=== PATIENT | female | born 1990 | race Caucasian/White ===

== ENCOUNTER 2019-08-29 14:30 | Emergency (ER) | payer OTHER, SELFPAY ==
[2019-08-29 14:31] VITALS: BMI 21.7
[2019-08-29 14:35] VITALS: BP 132/81; PULSE 70; RESP 28; TEMP 36.6; O2SAT 99
[2019-08-29 15:00] VITALS: BP 138/82; PULSE 61; RESP 18; O2SAT 99
[2019-08-29 15:08] LABS: Add Manual Diff / Slide Review NO; Basophils Absolute Auto 0 /uL (0-100); Basophils Percent Auto 0.9 % (0-2); Eosinophils Absolute Auto 100 /uL (0-450); Eosinophils Percent Auto 1.3 % (2-4); Hematocrit 41.9 % (36-46); Hemoglobin 14.5 g/dL (12.0-16.0); Lymphocytes Absolute Auto 1900 /uL (1100-4500); Lymphocytes Percent Auto 36.4 % (25-40); Mean Corpuscular HGB Conc 34.6 % (30-36); Mean Corpuscular Hemoglobin 30.2 PG (26-34); Mean Corpuscular Volume 87.2 fL (80-100); Monocytes Absolute Auto 300 /uL (0-900); Monocytes Percent Auto 4.8 % (3-14); Neutrophils Absolute Auto 3000 /uL (1500-7000); Neutrophils Percent Auto 56.6 % (50-75); Platelet Count 296 X10^3/uL (150-400); Red Cell Distribution Width 12.9 % (11.6-14.8); White Blood Cell Count 5.3 X10^3/uL (4.5-11.0)
--- NOTE | 2019-08-29 15:17 | DI.US.S_ITS ---
PROCEDURE: US ABDOMEN LIMITED INDICATIONS: RIGHT UPPER QUADRANT, EPIGASTRIC PAIN TECHNIQUE: Real-time focused scanning was performed of the abdomen, with image documentation. COMPARISON: None. FINDINGS: Gallbladder is unremarkable. No gallstones. No gallbladder wall thickening. No fluid around the gallbladder. No sonographic Banegas's sign. Liver is unremarkable with a normal echo pattern. No dilated ducts. Visualized portions of the pancreas are unremarkable. Right kidney not evaluated. IMPRESSION: Unremarkable limited right upper quadrant ultrasound with no evidence of gallstone disease. Dictated by: César Garland M.D. on 08/29/2019 at 16:18 Approved by: César Garland M.D. on 08/29/2019 at 16:19
[2019-08-29 15:19] LABS: Prothrombin Time 11.7 SECONDS (10.1-12.7)
[2019-08-29 15:21] LABS: Alanine Aminotransferase 14 IU/L (<35); Albumin 4.5 g/dL (3.5-5.0); Albumin Globulin Ratio 1.5 (1.0-2.8); Alkaline Phosphatase 60 U/L (38-126); Amylase 86 U/L (30-110); Aspartate Aminotransferase 28 IU/L (14-36); BUN Creatinine Ratio 16.7 (6-22); Bilirubin Total 0.9 mg/dL (0.2-1.3); Blood Urea Nitrogen 15 mg/dL (7-17); Carbon Dioxide 26 mmol/L (22-32); Chloride 101 mmol/L (98-107); Estimated Glomerular Filt Rate > 60.0 mL/min (>60); Globulin 3.1 g/dL (1.7-4.1); Glucose 97 mg/dL (70-100); HEMOLYSIS < 15 (0-50); Lipase 72 U/L (23-300); PTT Partial Thromboplastin Tim 27 SECONDS (26.4-36.2); Potassium 3.6 mmol/L (3.4-5.1); Sodium 136 mmol/L (137-145); Total Protein 7.6 g/dL (6.3-8.2)
[2019-08-29] MEDS: ONDANSETRON 4 MG/2 ML INJ IV (15:45)
[2019-08-29] MEDS: PANTOPRAZOLE 40 MG VIAL IV (15:45)
[2019-08-29] MEDS: SODIUM CHLORIDE 0.9% 1,000 ML 1000 ML IV (15:45)
[2019-08-29] MEDS: MORPHINE 4 MG/ML INJ IV ×2 (15:45→16:18)
[2019-08-29 16:04] VITALS: BP 124/75; PULSE 56; RESP 16; O2SAT 100
[2019-08-29] MEDS: MAG HYDROX/ALUMINUM/SIMETH SUS 20 ML, LIDOCAINE VISCOUS 2% 15 ML PO (16:18)
[2019-08-29 16:57] LABS: RBC Urine None Seen (0-5/HPF)
[2019-08-29 17:09] LABS: Bacteria Urine Few (2-10); Culture Indicated Urine Cult Not Indicated; Squamous Epithelial Cell Urine 1-5 /HPF (0-5/HPF); WBC Urine 0-1/HPF (0-5/HPF)
[2019-08-29 17:45] VITALS: BP 114/72; PULSE 58; RESP 18; O2SAT 98
--- NOTE | 2019-08-29 20:46 | ED_ITS ---
HPI - Abdominal Pain <TROY Grayson - Last Filed: 08/29/19 20:50> General Chief Complaint: Abdominal Pain Stated Complaint: Abd pain Time Seen by Provider: 08/29/19 14:41 Source: patient and EMS Mode of arrival: EMS Limitations: no limitations History of Present Illness HPI narrative: The patient is a 29 year female nonsmoker with history of abdominal pain who presents with a chief complaint of epigastric abdominal pain. She states she has episodes where she has and controllable epigastric pain and they do not know why. She states that she was being worked up for IBS, then ce liac, now air PCP is recommending a scope. She states it started all of a sudden today, denies any fevers complains of associated nausea no vomiting no diarrhea. Last bowel movement yesterday. She denies any dysuria urgency or frequency. She denies any precipitating factors for her pain. Related Data Home Medications Medication Instructions Recorded Confirmed drospirenone-ethinyl estradiol 1 tab PO DAILY 08/29/19 Previous Rx's Medication Instructions Recorded ondansetron 4 mg PO Q6H PRN #30 tab 08/29/19 pantoprazole [Protonix] 20 mg PO DAILY #14 tab 08/29/19 Allergies Allergy/AdvReac Type Severity Reaction Status Date / Time No Known Drug Allergies Allergy Verified 08/29/19 14:56 Review of Systems <TROY Grayson - Last Filed: 08/29/19 20:50> Review of Systems Narrative: GENERAL: Denies chills, fatigue, malaise, fever, sweats. HEENT: Denies sinus pain, ear pain, sore throat, difficulty swallowing, dizziness. RESPIRATORY: Denies dyspnea, cough, wheezing, hemoptysis, sputum. CARDIOVASCULAR: Denies chest pain, palpitations, orthopnea, edema, GASTROINTESTINAL: See HPI : Denies dysuria, frequency, incontinence, hematuria, urinary retention. MUSCULOSKELETAL: denies weakness, joint pain, or bony pain SKIN: Denies rash, skin lesions, or other NEUROLOGIC: Denies weakness, headache, numbness, change in speech, confusion, seizures, incoordination. PSYCHIATRIC: No concerning psychosocial issues. 12 point review of systems is negative except for those stated above Exam <TROY Grayson - Last Filed: 08/29/19 20:50> Narrative Exam Narrative: GENERAL: This is a well-nourished, well-developed patient, appears uncomfortable HEAD: Atraumatic. Normocephalic. No temporal or scalp tenderness. EYES: Pupils equal round and reactive. Extraocular motions intact. No scleral icterus. No injection or drainage. ENT: Nose without bleeding, purulent drainage or septal hematoma. Throat without erythema, tonsillar hypertrophy or exudate. Uvula midline. Airway patent. NECK: Trachea midline. No JVD or lymphadenopathy. Supple, nontender, no meningeal signs. CARDIOVASCULAR: Regular rate and rhythm without murmurs, gallops, or rubs. RESPIRATORY: Clear to auscultation. Breath sounds equal bilaterally. No wheezes, rales, or rhonchi. GASTROINTESTINAL: Abdomen soft, epigastric tenderness to palpation, right upper quadrant tenderness to palpation, nondistended. No hepato-splenomegaly, or palpable masses. Active bowel sounds all 4 quadrants EXTREMITIES: No clubbing, cyanosis, or edema. No joint tenderness, effusion, or edema noted. BACK: Nontender without deformity or crepitance. No flank tenderness. NEURO: AOx3. SKIN: No rash or erythema. Initial Vital Signs Initial Vital Signs: Vital Signs Temperature 97.9 F 08/29/19 14:35 Pulse Rate 70 08/29/19 14:35 Respiratory Rate 28 H 08/29/19 14:35 Blood Pressure 132/81 08/29/19 14:35 Pulse Oximetry 99 08/29/19 14:35 <Yael Avalos DO - Last Filed: 08/30/19 07:32> Initial Vital Signs Initial Vital Signs: Vital Signs Temperature 97.9 F 08/29/19 14:35 Pulse Rate 70 08/29/19 14:35 Respiratory Rate 28 H 08/29/19 14:35 Blood Pressure 132/81 08/29/19 14:35 Pulse Oximetry 99 08/29/19 14:35 Course <AMINA Grayson - Last Filed: 08/29/19 20:50> Orders Ordered: Discontinued Medications Al Hydrox/Mg Hydrox/Simethicone 20 ml/ Lidocaine HCl 15 ml 0 ml PO NOW ONE Stop: 08/29/19 16:14 Last Admin: 08/29/19 16:18 Dose: 45 ml Documented by: LREED Sodium Chloride (Normal Saline 0.9%) 1,000 mls @ 1,000 mls/hr IV BOLUS ONE Stop: 08/29/19 15:54 Last Infusion: 08/29/19 16:22 Dose: 0 mls/hr Documented by: Admin: 08/29/19 15:45 Dose: 1,000 mls/hr Documented by: LREED Morphine Sulfate (Morphine) 4 mg IV NOW ONE Stop: 08/29/19 14:56 Last Admin: 08/29/19 15:45 Dose: 4 mg Documented by: LREED Morphine Sulfate (Morphine) 4 mg IV NOW ONE Stop: 08/29/19 16:13 Last Admin: 08/29/19 16:18 Dose: 4 mg Documented by: PIYUSHEED Ondansetron HCl (Zofran) 4 mg IV NOW ONE Stop: 08/29/19 14:56 Last Admin: 08/29/19 15:45 Dose: 4 mg Documented by: LREED Pantoprazole Sodium (Protonix) 40 mg IV NOW ONE Stop: 08/29/19 14:56 Last Admin: 08/29/19 15:45 Dose: 40 mg Documented by: LREED Vital Signs Vital signs: Vital Signs - 8 hr 08/29/19 14:35 08/29/19 15:00 08/29/19 16:04 Temperature 97.9 F Pulse Rate 70 61 56 L Respiratory Rate 28 H 18 16 Blood Pressure Blood Pressure [Right Arm] 132/81 138/82 124/75 Pulse Oximetry 99 99 100 08/29/19 17:45 Temperature Pulse Rate 58 L Respiratory Rate 18 Blood Pressure 114/72 Blood Pressure [Right Arm] Pulse Oximetry 98 <Yael Avalos, - Last Filed: 08/30/19 07:32> Orders Ordered: Discontinued Medications Al Hydrox/Mg Hydrox/Simethicone 20 ml/ Lidocaine HCl 15 ml 0 ml PO NOW ONE Stop: 08/29/19 16:14 Last Admin: 08/29/19 16:18 Dose: 45 ml Documented by: PIYUSHEED Sodium Chloride (Normal Saline 0.9%) 1,000 mls @ 1,000 mls/hr IV BOLUS ONE Stop: 08/29/19 15:54 Last Infusion: 08/29/19 16:22 Dose: 0 mls/hr Documented by: Admin: 08/29/19 15:45 Dose: 1,000 mls/hr Documented by: LEAH Morphine Sulfate (Morphine) 4 mg IV NOW ONE Stop: 08/29/19 14:56 Last Admin: 08/29/19 15:45 Dose: 4 mg Documented by: PIYUSHEED Morphine Sulfate (Morphine) 4 mg IV NOW ONE Stop: 08/29/19 16:13 Last Admin: 08/29/19 16:18 Dose: 4 mg Documented by: LREED Ondansetron HCl (Zofran) 4 mg IV NOW ONE Stop: 08/29/19 14:56 Last Admin: 08/29/19 15:45 Dose: 4 mg Documented by: PIYUSHEED Pantoprazole Sodium (Protonix) 40 mg IV NOW ONE Stop: 08/29/19 14:56 Last Admin: 08/29/19 15:45 Dose: 40 mg Documented by: LEAH Vital Signs Vital signs: Vital Signs - 8 hr 08/29/19 14:35 08/29/19 15:00 08/29/19 16:04 Temperature 97.9 F Pulse Rate 70 61 56 L Respiratory Rate 28 H 18 16 Blood Pressure Blood Pressure [Right Arm] 132/81 138/82 124/75 Pulse Oximetry 99 99 100 08/29/19 17:45 Temperature Pulse Rate 58 L Respiratory Rate 18 Blood Pressure 114/72 Blood Pressure [Right Arm] Pulse Oximetry 98 MDM - Abdominal Pain <AMINA Grayson - Last Filed: 08/29/19 20:50> Lab Data Result diagrams: 08/29/19 14:58 08/29/19 14:58 Labs: Lab Results 08/29/19 08/29/19 08/29/19 Range/Units 14:58 14:58 14:58 WBC 5.3 (4.5-11.0) X10^3/uL RBC 4.80 (4.0-5.2) X10^6/uL Hgb 14.5 (12.0-16.0) g/dL Hct 41.9 (36-46) % MCV 87.2 (80-100) fL MCH 30.2 (26-34) PG MCHC 34.6 (30-36) % RDW 12.9 (11.6-14.8) % Plt Count 296 (150-400) X10^3/uL Neut % (Auto) 56.6 (50-75) % Lymph % (Auto) 36.4 (25-40) % [facility] % (Auto) 4.8 (3-14) % Eos % (Auto) 1.3 L (2-4) % Baso % (Auto) 0.9 (0-2) % Neut # (Auto) 3000 (4434-2971) /uL Lymph # (Auto) 1900 (1732-3324) /uL [facility] # (Auto) 300 (0-900) /uL Eos # (Auto) 100 (0-450) /uL Baso # (Auto) 0 (0-100) /uL PT 11.7 (10.1-12.7) SECONDS INR 1.0 (0.9-1.3) APTT 27 (26.4-36.2) SECONDS Sodium 136 L (137-145) mmol/L Potassium 3.6 (3.4-5.1) mmol/L Chloride 101 (98-107) mmol/L Carbon Dioxide 26 (22-32) mmol/L BUN 15 (7-17) mg/dL Creatinine 0.90 (0.52-1.04) mg/dL Estimated GFR > 60.0 (>60) mL/min BUN/Creatinine Ratio 16.7 (6-22) Glucose 97 (70-100) mg/dL Calcium 10.0 (8.4-10.2) mg/dL Total Bilirubin 0.9 (0.2-1.3) mg/dL AST 28 (14-36) IU/L ALT 14 (<35) IU/L Alkaline Phosphatase 60 (38-126) U/L Total Protein 7.6 (6.3-8.2) g/dL Albumin 4.5 (3.5-5.0) g/dL Globulin 3.1 (1.7-4.1) g/dL Albumin/Globulin Ratio 1.5 (1.0-2.8) Amylase (30-110) U/L Lipase 72 (23-300) U/L Urine RBC (0-5/HPF) Urine WBC (0-5/HPF) Ur Squamous Epith Cells (0-5/HPF) Urine Bacteria (None) Ur Culture Indicated? 08/29/19 08/29/19 Range/Units 14:58 16:41 WBC (4.5-11.0) X10^3/uL RBC (4.0-5.2) X10^6/uL Hgb (12.0-16.0) g/dL Hct (36-46) % MCV (80-100) fL MCH (26-34) PG MCHC (30-36) % RDW (11.6-14.8) % Plt Count (150-400) X10^3/uL Neut % (Auto) (50-75) % Lymph % (Auto) (25-40) % [facility] % (Auto) (3-14) % Eos % (Auto) (2-4) % Baso % (Auto) (0-2) % Neut # (Auto) (9297-5916) /uL Lymph # (Auto) (1597-9812) /uL [facility] # (Auto) (0-900) /uL Eos # (Auto) (0-450) /uL Baso # (Auto) (0-100) /uL PT (10.1-12.7) SECONDS INR (0.9-1.3) APTT (26.4-36.2) SECONDS Sodium (137-145) mmol/L Potassium (3.4-5.1) mmol/L Chloride (98-107) mmol/L Carbon Dioxide (22-32) mmol/L BUN (7-17) mg/dL Creatinine (0.52-1.04) mg/dL Estimated GFR (>60) mL/min BUN/Creatinine Ratio (6-22) Glucose (70-100) mg/dL Calcium (8.4-10.2) mg/dL Total Bilirubin (0.2-1.3) mg/dL AST (14-36) IU/L ALT (<35) IU/L Alkaline Phosphatase (38-126) U/L Total Protein (6.3-8.2) g/dL Albumin (3.5-5.0) g/dL Globulin (1.7-4.1) g/dL Albumin/Globulin Ratio (1.0-2.8) Amylase 86 (30-110) U/L Lipase (23-300) U/L Urine RBC None seen (0-5/HPF) Urine WBC 0-1/hpf (0-5/HPF) Ur Squamous Epith Cells 1-5 /hpf (0-5/HPF) Urine Bacteria Few (2-10) H (None) Ur Culture Indicated? Cult not indicated Point of care testing: Point of Care Testing Test Results Negative Urine Dip Bedside Urine Glucose Negative Bedside Urine Bilirubin - Negative Bedside Urine Ketone - Negative Urine Specific [place] 1.010 Bedside Urine Occult Blood - Negative Bedside Urine pH 8.5 Bedside Urine Protein - Negative Bedside Urine Urobilinogen - Negative Bedside Urine Nitrite - Negative Bedside Urine Leukocytes +/- 15 Esterase Imaging Data US - abdomen: Radiologist's impression: [address] [address] Ultrasound Report Signed Patient: Donna Richards#: [id number] : 1990Acct:[id number] Age/Sex: 29 / FDate of Service: 08/29/19 Loc: ED Accession Number: [id number] Procedure: US abdomen limited Ordering Provider: Devora Minaya PROCEDURE: US ABDOMEN LIMITED INDICATIONS: RIGHT UPPER QUADRANT, EPIGASTRIC PAIN TECHNIQUE: Real-time focused scanning was performed of the abdomen, with image documentation. COMPARISON: None. FINDINGS: Gallbladder is unremarkable. No gallstones. No gallbladder wall thickening. No fluid around the gallbladder. No sonographic Banegas's sign. Liver is unremarkable with a normal echo pattern. No dilated ducts. Visualized portions of the pancreas are unremarkable. Right kidney not evaluated. IMPRESSION: Unremarkable limited right upper quadrant ultrasound with no evidence of gallstone disease. Dictated by: César Garland M.D. on 08/29/2019 at 16:18 Approved by: César Garland M.D. on 08/29/2019 at 16:19 [facility] Narrative Medical decision making narrative: Patient is a 29-year-old female presents with a chief complaint of upper abdominal pain, which she states correlates with her history there of. Her lab work is overall benign, no leukocytosis, no evidence of urinary tract infection on UA. Given her pain to right upper quadrant, I did obtain an ultrasound to help rule out an acute gallbladder etiology. This came back normal. The patient felt 100% improved after medication administration, and states that she will follow up with primary care provider in the next few days. Apparently they have been working on getting the patient scope, which I think is up. At this point time. She is able to keep down fluids. Given that she is overall much improved, this correlates with her history, her lab work is benign, I do not feel that she needs a CT at this point time the patient is okay with that. Patient states understanding of follow-up care as well as return precautions as no questions or concerns upon discharge. <Yael Avalos, DO - Last Filed: 08/30/19 07:32> Lab Data Labs: Lab Results 08/29/19 08/29/19 08/29/19 Range/Units 14:58 14:58 14:58 WBC 5.3 (4.5-11.0) X10^3/uL RBC 4.80 (4.0-5.2) X10^6/uL Hgb 14.5 (12.0-16.0) g/dL Hct 41.9 (36-46) % MCV 87.2 (80-100) fL MCH 30.2 (26-34) PG MCHC 34.6 (30-36) % RDW 12.9 (11.6-14.8) % Plt Count 296 (150-400) X10^3/uL Neut % (Auto) 56.6 (50-75) % Lymph % (Auto) 36.4 (25-40) % [facility] % (Auto) 4.8 (3-14) % Eos % (Auto) 1.3 L (2-4) % Baso % (Auto) 0.9 (0-2) % Neut # (Auto) 3000 (5797-9580) /uL Lymph # (Auto) 1900 (2353-3350) /uL [facility] # (Auto) 300 (0-900) /uL Eos # (Auto) 100 (0-450) /uL Baso # (Auto) 0 (0-100) /uL PT 11.7 (10.1-12.7) SECONDS INR 1.0 (0.9-1.3) APTT 27 (26.4-36.2) SECONDS Sodium 136 L (137-145) mmol/L Potassium 3.6 (3.4-5.1) mmol/L Chloride 101 (98-107) mmol/L Carbon Dioxide 26 (22-32) mmol/L BUN 15 (7-17) mg/dL Creatinine 0.90 (0.52-1.04) mg/dL Estimated GFR > 60.0 (>60) mL/min BUN/Creatinine Ratio 16.7 (6-22) Glucose 97 (70-100) mg/dL Calcium 10.0 (8.4-10.2) mg/dL Total Bilirubin 0.9 (0.2-1.3) mg/dL AST 28 (14-36) IU/L ALT 14 (<35) IU/L Alkaline Phosphatase 60 (38-126) U/L Total Protein 7.6 (6.3-8.2) g/dL Albumin 4.5 (3.5-5.0) g/dL Globulin 3.1 (1.7-4.1) g/dL Albumin/Globulin Ratio 1.5 (1.0-2.8) Amylase (30-110) U/L Lipase 72 (23-300) U/L Urine RBC (0-5/HPF) Urine WBC (0-5/HPF) Ur Squamous Epith Cells (0-5/HPF) Urine Bacteria (None) Ur Culture Indicated? 08/29/19 08/29/19 Range/Units 14:58 16:41 WBC (4.5-11.0) X10^3/uL RBC (4.0-5.2) X10^6/uL Hgb (12.0-16.0) g/dL Hct (36-46) % MCV (80-100) fL MCH (26-34) PG MCHC (30-36) % RDW (11.6-14.8) % Plt Count (150-400) X10^3/uL Neut % (Auto) (50-75) % Lymph % (Auto) (25-40) % [facility] % (Auto) (3-14) % Eos % (Auto) (2-4) % Baso % (Auto) (0-2) % Neut # (Auto) (6653-0672) /uL Lymph # (Auto) (7246-8437) /uL [facility] # (Auto) (0-900) /uL Eos # (Auto) (0-450) /uL Baso # (Auto) (0-100) /uL PT (10.1-12.7) SECONDS INR (0.9-1.3) APTT (26.4-36.2) SECONDS Sodium (137-145) mmol/L Potassium (3.4-5.1) mmol/L Chloride (98-107) mmol/L Carbon Dioxide (22-32) mmol/L BUN (7-17) mg/dL Creatinine (0.52-1.04) mg/dL Estimated GFR (>60) mL/min BUN/Creatinine Ratio (6-22) Glucose (70-100) mg/dL Calcium (8.4-10.2) mg/dL Total Bilirubin (0.2-1.3) mg/dL AST (14-36) IU/L ALT (<35) IU/L Alkaline Phosphatase (38-126) U/L Total Protein (6.3-8.2) g/dL Albumin (3.5-5.0) g/dL Globulin (1.7-4.1) g/dL Albumin/Globulin Ratio (1.0-2.8) Amylase 86 (30-110) U/L Lipase (23-300) U/L Urine RBC None seen (0-5/HPF) Urine WBC 0-1/hpf (0-5/HPF) Ur Squamous Epith Cells 1-5 /hpf (0-5/HPF) Urine Bacteria Few (2-10) H (None) Ur Culture Indicated? Cult not indicated Point of care testing: Point of Care Testing Test Results Negative Urine Dip Bedside Urine Glucose Negative Bedside Urine Bilirubin - Negative Bedside Urine Ketone - Negative Urine Specific [place] 1.010 Bedside Urine Occult Blood - Negative Bedside Urine pH 8.5 Bedside Urine Protein - Negative Bedside Urine Urobilinogen - Negative Bedside Urine Nitrite - Negative Bedside Urine Leukocytes +/- 15 Esterase Discharge Plan Departure Patient Disposition: Home Clinical Impression: Abdominal pain Qualifiers: Abdominal location: generalized Qualified Code(s): R10.84 - Generalized abdominal pain Discharge Date/Time: 08/29/19 17:45 Instructions: DI for Abdominal Pain-Adult Activity Restrictions/Additional Instructions: Please follow a bland diet for the next few days. Avoid acid, deep fried food, fatty food spicy food except Please come back to the emergency department for any acute concerns such as inability keep down fluids. I have sent in Protonix for stomach acid and Zofran for nausea to [facility]. Please follow up with primary care provider in the next few days. I suggest further GI workup such as the scopes. Prescriptions: New pantoprazole [Protonix] 20 mg tablet,delayed release (DR/EC) 20 mg PO DAILY Qty: 14 RF: 0 ondansetron 4 mg tablet,disintegrating 4 mg PO Q6H PRN (Reason: nausea and vomiting) Qty: 30 RF: 0 No Action drospirenone-ethinyl estradiol 3-0.02 mg tablet 1 tab PO DAILY RF: 0 Referrals: [facility] [employer] [Provider Group]
== END 2019-08-29 17:45 | disposition home or self-care (01) ==
PROVIDERS: Emergency Medicine; Emergency Provider Nurse Practitioner Family
DX: R10.84 Generalized abdominal pain (principal)
CPT/HCPCS: 36415; 76705; 80053; 81003; 81015; 81025; 82150; 83690; 85025; 85610; 85730; 96361; 96374; 96375; 96376; 99283; 99284; C9113; J2270; J2405